=== PATIENT | female | born 1955 | race Caucasian/White ===

== ENCOUNTER 2019-10-19 15:24 | Emergency (ER) | payer BC, SELFPAY ==
--- NOTE | ~2019-10-19 | XR_ITS ---
XR hand LT 2V 10/19/2019 17:53 Indication: Shortness reduction left hand fractures Procedure: 2 views left hand Comparison: 10/19/2019 Findings: There are fractures involving the bases of the third, fourth and fifth proximal phalanges w ith improved alignment of the fifth digit fracture. There is stable alignment of the third and fourth proximal phalangeal fractures. No other significant change. Impression: 1: Extra-articular fractures bases of the third, fourth and fifth proximal phalanges with improved al ignment of the fracture involving the fifth proximal phalanx. Reviewed, dictated and finalized at location A. Impression: 1: Extra-articular fractures bases of the third, fourth and fifth proximal phal anges with improved alignment of the fracture involving the fifth proximal phal anx.
--- NOTE | ~2019-10-19 | XR_ITS ---
XR hand LT min 3V 10/19/2019 16:02 Indication: Left hand pain after fall Procedure: 3 views left hand Comparison: 12/08/2018 Findings: There are fractures involving the proximal aspect of the third, fourth and fifth proximal p halanges. No definite intra-articular extension. There is dorsal displacement of the fourth and fifth digit fractures with mild dorsal angulation. There is severe degenerative change of the first [facility] fabiana int. No other acute fracture or traumatic malalignment. Impression: 1: Extra articular fractures left third, fourth and fifth proximal phalanges with dorsal displacement and angulation of the fourth and fifth digit fractures. Reviewed, dictated and finalized at location A. Impression: 1: Extra articular fractures left third, fourth and fifth proximal phalanges wi dorsal displacement and angulation of the fourth and fifth digit fractures.
[2019-10-19 15:26] VITALS: BP 153/113; PULSE 110; RESP 20; TEMP 36.6; O2SAT 97
[2019-10-19] MEDS: SODIUM CHLORIDE 0.9% IV 1,000 ML 999 ML IV CONT (15:48)
[2019-10-19] MEDS: ONDANSETRON INJ 4 MG/2 ML VIAL IV PUSH (15:49)
[2019-10-19] MEDS: MORPHINE SULFATE 4 MG/ML INJ IV PUSH ×2 (15:49→17:03)
[2019-10-19 16:00] VITALS: BP 113/69; PULSE 75; RESP 16; O2SAT 96
--- NOTE | 2019-10-19 16:23 | PC.NURSE ---
Patient given sponge to wet mouth per verbal okay from Hang BLAKELY
[2019-10-19 17:03] VITALS: BP 137/78; PULSE 97; RESP 20; O2SAT 95
[2019-10-19] MEDS: SODIUM CHLORIDE 0.9% IV 500 ML 999 ML (17:03)
[2019-10-19 17:08] VITALS: BP 120/90; PULSE 79; RESP 18; O2SAT 95
[2019-10-19 17:53] VITALS: BP 118/74; PULSE 69; RESP 18; O2SAT 96
--- NOTE | 2019-10-19 18:11 | ED.GENADULT ---
HPI - General Adult General Chief complaint: Extremity Injury, Upper Stated complaint: left hand injury Time Seen by Provider: 10/19/19 15:27 Source: patient Mode of arrival: ambulatory Limitations: no limitations History of Present Illness HPI narrative: Patient is a 64-year-old female who presents with injury of the left hand patient was ambulating when she misstepped and landed on the left hand sustaining injuries to the third through fifth digits as well as the hand patient notes moderate aching pain to the hand and digits as listed patient has not had anything for pain presents per private vehicle and on arrival is in the room resting comfortably and mild pain distress patient denies other injuries or complaints Related Data Home Medications Medication Instructions Recorded Confirmed sulfasalazine 500 mg tablet 0.5 gm PO BID tablet 09/27/19 09/27/19 Allergies Allergy/AdvReac Type Severity Reaction Status Date / Time azithromycin Allergy Intermediate Diarrhea Verified 12/08/16 16:19 codeine Allergy Unknown Verified 05/04/11 16:34 hydrocodone Allergy Unknown Verified 06/08/12 08:19 Penicillins Allergy Unknown Verified 09/19/16 16:13 tramadol Allergy Unknown Verified 06/08/12 08:18 valacyclovir Allergy Unknown Verified 01/25/17 13:56 Review of Systems Review of Systems: All systems reviewed & are unremarkable except as noted in HPI and below PMFSH Past Medical History Medical History Allergic rhinitis Ankylosing spondylitis Anxiety Chronic low back pain COPD (chronic obstructive pulmonary disease) DDD (degenerative disc disease) Depression GERD (gastroesophageal reflux disease) H/O deep venous thrombosis HLD (hyperlipidemia) Paresthesias Personal history of pulmonary embolism Polyarthralgia PTSD (post-traumatic stress disorder) Family History Family History (Updated 01/16/14 @ 07:13 by DOCTOR UNKNOWN) Father Family history of coronary artery disease Social History Social History Smoking status: Light tobacco smoker Alcohol intake: never Exam Narrative: Exam Narrative: GENERAL: Well-appearing, well-nourished, and in no acute distress. HEAD: Normocephalic, atraumatic. EYES: PERRLA and EOMI. ENT: Nares clear, no rhinorrhea or epistaxis. Mucous membranes moist. CHEST: Clear to auscultation. No respiratory distress. No wheezes rales or rhonchi HEART: Regular rate and rhythm. No murmur heard. Normal peripheral pulses. EXTREMITIES: Patient with bruising swelling and tenderness involving the proximal phalanxes and distal to mid hand of the left hand the digits involved of the third through fifth SKIN: Warm, dry, no rash. NEURO: No focal deficits. Alert and oriented x3. Neurovascularly intact. Capillary refill less than 2 seconds PSYCH: Normal mood and affect. Course Course Emergency Course: Patient in the room aware of case findings treatment plan and diagnosis agreeing to follow-up as directed or to return if symptoms worsen or concerns Consultations Consultation #1: Discussed case with hand surgeon who will follow patient in clinic Date: 10/19/19 Time: 18:28 Vital Signs Vital signs: Vital Signs Temperature 97.8 F 10/19/19 15:26 Pulse Rate 110 H 10/19/19 15:26 Respiratory Rate 20 10/19/19 15:26 Blood Pressure 153/113 H 10/19/19 15:26 Pulse Oximetry 97 10/19/19 15:26 Temperature 97.8 F 10/19/19 15:26 Pulse Rate 69 10/19/19 17:53 Respiratory Rate 18 10/19/19 17:53 Blood Pressure 118/74 10/19/19 17:53 Pulse Oximetry 96 10/19/19 17:53 Procedures Other Procedure Procedure 1: Other Procedure: Patient was placed in a ulnar gutter splint by myself and the driver license technician and nurse that was fabricated in the emergency department. Patient is neurovascularly intact pre-and post procedure Medical Decision Making [facility] Narrative Medical decis
[2019-10-19 19:00] VITALS: BP 117/66; PULSE 67; RESP 18; O2SAT 97
== END 2019-10-19 19:02 | disposition home or self-care (01) ==
PROVIDERS: Emergency Provider Emergency Medicine; PCP Family Medicine
DX: S62.613A Displaced fracture of proximal phalanx of left middle finger, initial encounter for closed fracture (principal); S62.615A Displaced fracture of proximal phalanx of left ring finger, initial encounter for closed fracture; S62.617A Displaced fracture of proximal phalanx of left little finger, initial encounter for closed fracture; J44.9 Chronic obstructive pulmonary disease, unspecified; K21.9 Gastro-esophageal reflux disease without esophagitis; F41.9 Anxiety disorder, unspecified; F32.9 Major depressive disorder, single episode, unspecified; E78.5 Hyperlipidemia, unspecified; F43.10 Post-traumatic stress disorder, unspecified; Z86.711 Personal history of pulmonary embolism; Z86.718 Personal history of other venous thrombosis and embolism; F17.200 Nicotine dependence, unspecified, uncomplicated; W01.0XXA Fall on same level from slipping, tripping and stumbling without subsequent striking against object, initial encounter
CPT/HCPCS: 26725; 26770; 29125; 73120; 73130; 99284; J2270; J2405; J7030; J7040

== ENCOUNTER 2020-07-30 13:01 | Outpatient (CLI) | payer BC, SELFPAY | END 2020-07-30 13:02 | disposition home or self-care (01) | LOC: ANHCOVIDVC 13:01 | PROVIDERS: PCP Physician Assistant | DX: Z23 Encounter for immunization (principal) | CPT/HCPCS: 0001A; 91300 ==

== ENCOUNTER 2020-08-20 13:00 | Outpatient (CLI) | payer BC, SELFPAY | END 2020-08-20 13:01 | disposition home or self-care (01) | LOC: ANHCOVIDVC 13:00 | PROVIDERS: PCP Physician Assistant | DX: Z23 Encounter for immunization (principal) | CPT/HCPCS: 0002A; 91300 ==

== ENCOUNTER 2021-01-27 13:05 | Outpatient (CLI) | payer BC, SELFPAY ==
--- NOTE | 2021-01-27 13:22 | ECHO_ITS ---
Patient Info Name: Anat Mercado Age: 65 years : 1955 Gender: Female Ht: 66 in Wt: 140 lbs BSA: 1.72 m2 HR: 68 bpm BP: 111 / 73 mmHg Technical Quality: Good Exam Date: 01/27/2021 1:40 PM Exam Location: [facility] Patient Status: Outpatient Admit Date: 01/27/2021 Staff Ordering Physician: Mani Peña PA-C Sod Cutter: Martha Daniels RDCS Attending Provider: Mani Peña PA-C Referring Physician: Mariana AMARAL; Exam Type: CA echo doppler color flow Study Info Indications - copd pre op R06.02 - Shortness of breath Complete two-dimensional, color flow and Doppler transthoracic echocardiogram is performed. Summary 1. Complete two-dimensional, color flow and Doppler transthoracic echocardiogram is performed. 2. Left ventricular chamber dimension is normal. 3. Left ventricular systolic function is normal, estimated at 60-65%. 4. The left ventricular diastolic function is grade I diastolic dysfunction. 5. E/e' 8 is minimally elevated. 6. Global longitudinal strain is normal at -21.4%. 7. Left atrial chamber dimension is mildly enlarged. 8. There is mild mitral valve regurgitation. 9. There is trace tricuspid valve regurgitation. 10. No pulmonary hypertension, estimated pulmonary arterial systolic pressure is 28 mmHg. Left Ventricle E/e' 8 is minimally elevated. Global longitudinal strain is normal at -21.4%. Left ventricular chamber dimension is normal. Left ventricular systolic function is normal, estimated at 60-65%. The left ventricular diastolic function is grade I diastolic dysfunction. Right Ventricle Right ventricular chamber dimension is normal. Right ventricular systolic function is normal. Left Atria Left atrial chamber dimension is mildly enlarged. Right Atria Right atrial chamber dimension is normal. Aortic Valve The aortic valve is trileaflet. There is no aortic valve stenosis. There is no aortic valve regurgitation. Pulmonic Valve There is no pulmonic regurgitation. Mitral Valve There is no mitral valve stenosis. There is mild mitral valve regurgitation. Tricuspid Valve There is trace tricuspid valve regurgitation. No pulmonary hypertension, estimated pulmonary arterial systolic pressure is 28 mmHg. Pericardium/Pleural There is no pericardial effusion. Inferior Vena Cava Normal inferior vena cava with >50% collapse upon inspiration consistent with normal right atrial pressure, 5 mmHg. Aorta The aortic root size at the sinus of Valsalva is normal. Left Ventricular Outflow Tract Name Value Normal LVOT 2D LVOT Diameter 2.0 cm LVOT Doppler LVOT Peak Gradient 5 mmHg LVOT Mean Gradient 3 mmHg LVOT VTI 26 cm LVOT VTI/AV VTI Ratio 0.9 LVOT Stroke Volume 78 ml LVOT CO 13.8 l/min LVOT CI 8.0 l/min/m2 Pulmonic Valve Name
--- NOTE | 2021-01-30 23:03 | WPDPFTINT ---
PFT Procedure Performed PFT Procedure Performed Spirometry with Pre/Post Bronchodilator Plethysmography (Lung Vol) Diffusing Cap (DLCO) Flow Vol Loop PFT Interpretation DOS: 01/27/2021 REQUESTING: Mani Peña PA-C REASON FOR TESTING: Shortness of breath, possible surgery PULMONARY FUNCTION TESTS results are reliable and reproducible. Spirometry: FEV1 is 103% predicted, 2.65 L. FVC iw 126%, supranormal. FEV1/FVC is 64% which is decreased. There is no increased after bronchodilator administration. Lung volumes: Total lung capacity is 130%, mild hyperinflation. Residual volume is 130%, mild air trapping. This is consistent with an obstructive process. Airway resistance is 211%, increased. Diffusion: DLCO is mildly decreased, 65% predicted. Flow volume loop: Mild concave pattern of the expiratory limb consistent with airflow obstruction. IMPRESSION: Mild obstructive ventilatory impairment with mild air trapping and hyperinflation and diffusion impairment. Lack of response to bronchodilator should not preclude use if clinically indicated. Sushma Ha MD
== END 2021-01-27 13:06 | disposition home or self-care (01) ==
LOC: ANHCARD 13:07
PROVIDERS: PCP Physician Assistant; Visit Provider Physician Assistant
DX: J44.9 Chronic obstructive pulmonary disease, unspecified (principal); I34.0 Nonrheumatic mitral (valve) insufficiency
CPT/HCPCS: 93306; 94060; 94726; 94729

== ENCOUNTER 2024-06-22 15:05 | Emergency (ER) | payer BC, SELFPAY ==
--- NOTE | ~2024-06-22 | XR_ITS ---
EXAM: XR ankle LT min 3V, XR foot LT min 3V DATE: 06/22/2024 16:09 HISTORY: fall x 1 week . COMPARISON: None available. FINDINGS: Normal mineralization. Oblique fracture of the distal left fibula, extending to the joint line (Shaw B), with 2 mm lateral displacement. No lytic or blastic lesion. Mild degenerative change at the first MTP joint and multiple midfoot joints. Achilles and plantar enthesopathy. No erosion or periosteal change. Soft tissues within normal limits. IMPRESSION: Minimally displaced oblique distal left fibular fracture. Reviewed, dictated and finalized at location K. ENCE TECHNICIAN IMPRESSION: Minimally displaced oblique distal left fibular fracture.
--- OUTSIDE RECORDS SUMMARY | 2024-06-22 15:07 | XMS_ITS | Clinical Summary ---
Author Organization [facility] Address [address] [facility] [address] [place] [address] Phone Care Team Providers Care Corporate Compliance Manager Name Role Phone Enrique Hussein MD Primary Care Provider Allergies Active Allergy Reactions Criticality Noted Date Comments Menthol Nausea 02/04/2019 All pain medicine Medications albuterol 108 (90 Base) MCG/ACT Aerosol Solution INHALE 2 PUFFS EVERY 4 HOURS NEEDED FOR SHORTNESS OF BREATH. 1 10/21/19 19 Active azithromycin (ZITHROMAX) 500 MG Tablet 1 TABLET(S) ORAL DAILY ON MONDAY, MONDAY AND MONDAY, 1 01/16/20 19 Active ferrous sulfate 325 (65 Fe) MG Tablet TAKE 1 TABLET BY MOUTH THREE TIMES A DAY TAKE WITH MEALS 0 01/08/20 19 Active TRELEGY ELLIPTA 100-62.5-25 MCG/INH AEROSOL POWDER, BREATH ACTIVATED INHALE 1 PUFF BY MOUTH DAILY 1 01/16/20 19 Active ipratropium-albuter ol (DUO-NEB) 0.5-2.5 (3) MG/3ML Solution INHALE 3 ML VIA NEBULIZATION ROUTE FOUR TIMES DAILY 0 01/02/20 19 Active Levocetirizine Dihydrochloride 5 MG Tablet TAKE 1 TABLET (5MG) BY MOUTH EVERY DAY IN THE EVENING 1 01/24/20 19 Active montelukast (SINGULAIR) 10 MG Tablet TAKE 1 TABLET BY MOUTH EVERY DAY IN THE EVENING 5 01/25/20 19 Active omeprazole (PRILOSEC) 40 MG CAPSULE DELAYED RELEASE TAKE 1 CAPSULE BY MOUTH TWICE A DAY BEFORE A MEAL 3 01/14/20 19 Active prochlorperazine (COMPAZINE) 10 MG Tablet TAKE 1 TABLET BY MOUTH THREE TIMES A DAY 5 11/28/19 19 Active DALIRESP 250 MCG Tablet TAKE 1 TABLET BY MOUTH DAILY FOR 30 DAYS 0 01/27/20 19 Active DALIRESP 500 MCG Tablet Take 500 mcg by mouth daily. 2 01/17/20 19 Active Active Problems Problem Noted Date Diagnosed Date Iron deficiency anemia 02/04/2019 Family History Medical History Relation Name Comments Heart Attack Father Stroke Maternal Grandmother Cancer Mother Relation Name Status Comments Father Maternal Grandmother Mother Social History Tobacco Use Types Packs/Day Years Used Date Smoking Tobacco: Former Smokeless Tobacco: Former Tobacco Cessation:Counseling Given: No Alcohol Use Standard Drinks/Week Comments Not Currently 0 (1 standard drink = 0.6 oz pur e alcohol) PHQ-2 Answer Date Recorded PHQ-2 Score 0 02/04/2019 Comments Unknown Sex and Gender Information Value Date Recorded Sex Assigned at Not on file Legal Sex Female 3:02 PM CDT Gender Identity Not on file Sexual Orientation Not on file Last Filed Vital Signs Vital Sign Reading Time Taken Comments Blood Pressure 136/80 03/07/2019 3:15 PM CDT Pulse 85 03/07/2019 3:15 PM CDT Temperature 36.4 ??C (97.5 ??F) 03/07/2019 3:15 PM CD T Respiratory Rate - - Oxygen Saturation 96% 03/07/2019 3:15 PM CDT Inhaled Oxygen Concentration - - Weight 73.9 kg (163 lb) 03/07/2019 3:15 PM CDT Height 167.6 cm (5' 6 ) 02/04/2019 1:02 PM CDT Body Mass Index 26.31 02/04/2019 1:02 PM CDT Plan of Treatment Health Maintenance Due Date Last Done Comments DEXA Bone Density 1955 Hepatitis C Virus (HCV) Screening 1955 Colonoscopy 2001 Colorectal Cancer Screening 2001 Cologuard 2006 Immunochemical Fecal Occult Blood 2006 Mammogram 2006 Zoster Immunization (1 of 2) 2006 Pneumococcal Immunization (5 0+ years) (2 of 2 - PCV) 06/08/2013 06/08/2012 Influenza Immunization (#1) 01/21/202401/21, 02/17/2017 SARS-COV-2 Immunization ( - 2023-25 season) 2024 Respiratory Syncytial Virus (RSV) Immunization (Adult) (1 - 1-dose 75+ series) 10/11/2031 DTaP/Tdap/Td Immunization Discontinued 06/08/2012 Pneumococcal Immunization Combined Discontinued 06/08/2012 TdaP Immunization Completed 06/08/2012 Hepatitis B Immunization Aged Out No longer eligible based on patient's age to complete this topic Meningococcal Immunization (ACWY) Aged Out No longer eligible based on patient's age to complete this topic Rotavirus Immunization Aged Out No lo nger eligible based on patient's age to complete this topic Insurance Care Teams Corporate Compliance Manager Relationship Specialty Start Date End Date Enrique Hussein MD [address] [place] [address] PCP - General Family Medicine 02/04/19
--- OUTSIDE RECORDS SUMMARY | 2024-06-22 15:07 | XMS_ITS | Referral Summary ---
Author Organization [facility] Address [address] [place] [address] Care Team Providers Care Electricity Trader Name Role Phone Unknown, Provider Primary Care Provider Unavaila ble Source Comments [facility],non-owned Affiliates and Associated Physician Practices is amultiple site organization consisting of ambulatory clinics and hospital sitesin [place] and [place]. This disclosure is being madepursuant to the Care Everywhere program and may not contain all information available regarding this patient. Last updated 18.[facility] Allergies Active Allergy Reactions Criticality Noted Date Comments Menthol Unknown 02/04/2019 All pain medicine Penicillin G Sodium Unknown 11/26/2019 Medications * Be aware that medications may not be up to date on this document. Alwaysverify current medications with the patient. Medication Sig Dispensed Refills Start Date End Date Status albuterol HFA (PROVENTIL;VENTOLI N;PROAIR) 108 (90 Base) MCG/ACT inhaler INHALE 2 PUFFS EVERY 4 HOURS NEEDED FOR SHORTNESS OF BREATH. 10/20/2018 Active ciprofloxacin (CIPRO) 500 MG tablet TAKE 1 TABLET BY MOUTH EVERY 12 HOURS FOR 7 DAYS 06/03/2019 Active escitalopram (LEXAPRO) 10 MG tablet Take 10 mg by mouth once daily 12/20/2019 Active doxycycline hyclate (VIBRAMYCIN) 100 MG tablet TAKE 1 TABLET BY MOUTH TWICE A DAY FOR 10 DAYS 07/25/2019 Active cyclobenzaprine (FLEXERIL) 5 MG tablet 02/18/2020 Active clonazePAM (KLONOPIN) 0.5 MG tablet Take 0.25-0.5 mg by mouth for sleep 10/29/2019 Active ferrous sulfate 325 (65 FE) MG tablet TAKE 1 TABLET BY MOUTH THREE TIMES A DAY TAKE WITH MEALS 01/07/2019 Active TRELEGY ELLIPTA 100-62.5-25 MCG/INH Inhale 1 puff by mouth once daily 01/20/2020 Active albuterol-ipratrop ium (DUO-NEB) 0.5-2.5 (3) MG/3ML nebulizer solution INHALE 3 ML VIA NEBULIZATION ROUTE FOUR TIMES DAILY 01/01/2019 Active levocetirizine (XYZAL) 5 MG tablet 01/09/2020 Active VIVLODEX 10 MG CAPS 01/31/2020 Active montelukast (SINGULAIR) 10 MG tablet 01/09/2020 Active omeprazole (PRILOSEC) 40 MG capsule TAKE 1 CAPSULE BY MOUTH TWICE A DAY 02/07/2020 Active prochlorperazine (COMPAZINE) 10 MG tablet Take 10 mg by mouth every 8 hours as needed 02/07/2020 Active sulfaSALAzine EC (AZULFIDINE ENTAB) 500 MG tablet Take 1,000 mg by mouth 2 times daily 01/28/2020 Active Roflumilast (DALIRESP) 250 MCG tablet TAKE 1 TABLET BY MOUTH DAILY FOR 30 DAYS 01/26/2019 Active meloxicam (MOBIC) 7.5 MG tablet Take 1 tablet by mouth once daily 30 tablet 2 02/20/2020 Active azithromycin (ZITHROMAX) 500 MG tablet TAKE 1 TAB BY MOUTH EVERY MONDAY, MONDAY, AND Monday07/30/2020 Active Active Problems Problem Noted Date Diagnosed Date Back pain 02/21/2020 Social History Tobacco Use Types Packs/Day Years Used Date Smoking Tobacco: Former Cigarettes Q uit: 02/19/2018 Smokeless Tobacco: Never Sex and Gender Information Value Date Recorded Sex Assigned at Not on file Gender Identity Not on file Sexual Orientation Not on file Last Filed Vital Signs Vital Sign Reading Time Taken Comments Blood Pressure - - Pulse - - Temperature - - Respiratory Rate - - Oxygen Saturation - - Inhaled Oxygen Concentration - - Weight 68.6 kg (151 lb 3.2 oz) 09/24/2020 11:56 AM CDT Height 165.1 cm (5' 5 ) 09/24/2020 11:56 AM CDT Body Mass Index 25.16 09/24/2020 11:56 AM CDT Plan of Treatment Not on file Care Teams Electricity Trader Relationship Specialty Start Date End Date Unknown, Provider PCP - General 02/19/20
--- OUTSIDE RECORDS SUMMARY | 2024-06-22 15:07 | XMS_ITS | Clinical Summary ---
Author Organization [facility] Address [address] [place] [id number] Care Team Providers Care Postmaster Name Role Phone Mani Peña Primary Care Provider Allergies Active Allergy Reactions Criticality Noted Date Comments Roflumilast Swelling High 10/27/2022 Menthol Nausea only,Unknown Low 02/04/2019 All pain medicine All pain medicine Opioids - Morphine Analogues Nausea & Vomiting Medium 10/27/2022 Penicillin G Sodium Unknown 11/26/2019 Medications omeprazole (PriLOSEC) 40 mg capsule Take 1 capsule (40 mg total) by mouth 2 (two) times a day 11/25/19 22 Active prochlorperazine (COMPAZINE) 10 mg tablet Take 1 tablet (10 mg total) by mouth every 12 (twelve) hours as needed 11/25/19 22 Active levocetirizine (XYZAL) 5 mg tablet Take 1 tablet (5 mg total) by mouth daily 11/25/19 22 Active Trelegy Ellipta 100-62.5-25 mcg inhaler Inhale 1 puff daily 11/25/19 22 Active ferrous sulfate 325 mg (65 mg of elemental iron) tablet TAKE 1 TABLET BY MOUTH THREE TIMES A DAY TAKE WITH MEALS 01/08/20 19 Active escitalopram (LEXAPRO) 20 mg tablet Take 0.5 tablets (10 mg total) by mouth 2 (two) times a day 12/01/19 22 Active cyclobenzaprine (FLEXERIL) 5 mg tablet Take 1 tablet (5 mg total) by mouth 02/18/20 20 Active ipratropium-albut Stef (DUO-NEB) 0.5-2.5 mg/3 mL nebulizer solution INHALE 3 ML VIA NEBULIZATION ROUTE FOUR TIMES DAILY 01/02/20 19 Active cyanocobalamin (Vitamin B-12) 2,000 mcg tablet Act dillon folic acid (FOLVITE) 1 mg tablet Take 1 tablet (1 mg total) by mouth daily Active albuterol HFA (PROVENTIL HFA,VENTOLIN HFA,PROAIR HFA) 90 mcg/actuation inhaler INHALE 2 PUFFS BY MOUTH EVERY 4 HOURS NEEDED FOR SHORTNESS OF BREATH 10/21/19 19 Active ondansetron (ZOFRAN) 4 mg tablet TAKE 1 TABLET BY MOUTH EVERY 8 HOURS NEEDED FOR NAUSEA AND VOMITING 9 tablet 2 09/07/19 23 Active rosuvastatin (CRESTOR) 5 mg tablet Take 1 tablet (5 mg total) by mouth daily 09/07/19 23 Active fluticasone propionate (FLONASE) 50 mcg/actuation nasal spray 09/29/19 23 Active ibandronate (BONIVA) 150 mg tablet 150 MG ORALLY MONTHLY 08/29/19 23 Active montelukast (SINGULAIR) 10 mg tablet Take 1 tablet (10 mg total) by mouth daily 09/22/19 23 Active pregabalin (LYRICA) 75 mg capsuleIndication s:Neuropathic Pain Take 1 capsule (75 mg total) by mouth daily 60 capsule 02/04/20 23 Active lidocaine (LIDODERM) 5 %Indications:Lumb ar radiculopathy PLACE 1 PATCH ON THE SKIN DAILY REMOVE & DISCARD PATCH WITHIN 12 HOURS OR DIRECTED BY 30 patch 11 10/30/19 24 025 Active Active Problems Problem Noted Date Diagnosed Date Displaced fracture of proxim al phalanx of left little finger, initial encounter for closed fracture 12/10/2021 Fall on same level 12/10/2021 Back pain 02/21/2020 Iron deficiency anemia 02/04/2019 Immunizations Name Administration Dates Next Due Influenza, Quadrivalent, Spl it, Preservative Free, Intramuscular 02/15/2021,02/09/2018,02/17/2017 Influenza, Split 04/30/2013,06/08/2012 Pneumococcal Polysaccharide PPV23 06/08/2012 Tdap 06/08/2012 Surgical History Surgery Date Site/Laterality Comments REPLACEMENT DISC ANTERIOR LUMBAR SPINE 05/22/2004 - 05/21/2005 L5 HYSTERECTOMY CHOLECYSTECTOMY SECTION 3 of them.1982,1984,1986 CYST REMOVAL 05/22/1992 - 05/21/1993 wrist Medical History Medical History Date Comments COPD (chronic obstructive pulmonary disease) (HC C) Rheumatoid arthritis (HCC) Asthma Bleeding disorder (CMS/HCC) (HCC) Depression Hypertension Osteopenia Osteoporosis Social History Tobacco Use Types Packs/Day Years Used Date Smoking Tobacco: Former Cigarettes Q uit: 2019 Tobacco Cessation:Counseling Given: Not Answered AUDIT-C Answer Date Recorded Q1: How often do you have a drink containing alcohol? Never 11/17/2022 Q2: How many drinks containi ng alcohol do you have on a typical day when you are drinking? Patient does not drink Q3: How often do you have si x or more drinks on one occasion? 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 Gender Identity Not on file Sexual Orientation Not on file Obstetrics History Last Filed Vital Signs Vital Sign Reading Time Taken Comments Blood Pressure 140/86 11/17/2022 11:28 AM CDT Pulse 85 11/17/2022 11:28 AM CDT Temperature 36.5 ??C (97.7 ??F) 11/17/2022 10:38 AM C DT Respiratory Rate 16 11/17/2022 11:28 AM CDT Oxygen Saturation 93% 11/17/2022 11:28 AM CDT Inhaled Oxygen Concentration - - Weight 76.2 kg (168 lb) 11/17/2022 3:09 PM CDT Height 167.6 cm (5' 6 ) 11/17/2022 3:09 PM CDT Body Mass Index 27.12 11/17/2022 3:09 PM CDT Plan of Treatment Health Maintenance Due Date Last Done Comments Breast Cancer Screening-Mammogram 1955 Colon Cancer Screening-Colonoscopy 1955 Depression Screening 1955 Hepatitis C Screening 1955 Hepatitis B Screening 1974 Zoster Vaccine (1 of 2) 2006 Pneumococcal vaccine 65+ (2 of 2 - PCV) 2021 06/08/2012 Well Visit 65+ 2021 DTaP/Tdap/Td Vaccine (2 - Td or Tdap) 06/08/2022 06/08/2012 Fall Risk Assessment 11/18/2023 11/17/2022, 10/28/19 Osteoporosis Screening-Bone Density Scan 12/23/2023 12/22/2021 Covid-19 Vaccine (5 - 2023-2 5 season) 2024 06/21/2021, 01/05/2021, 08/20/2020, Additional history exists Influenza Vaccine (#1) 2024 , 02/09/2018, 02/17/2017, Additional history exists Goals Goal Patient Goal Type Associated Problems Recent Progress Patient-Stated? Author CCM Chronic Pain Care Plan Chronic Care Management No Rosy Kasper RN Note: Problem: Chronic Pain Goals: 1. Minimize further functional decline 2. Maximize quality of life 3. Control pain Strategies: - Activity/exercise program recommendation - Conservative stepwise pain medicine strategy with multi-disciplinary approach - Recommend healthy lifestyle strategies and compensatory methods as needed Reduce the likelihood of falling Lifestyle Rosy Prather RN Note: Below are four things you can do to prevent falls: Begin an exercise program to improve your leg strength & balance Ask your doctor or pharmacist to review your medicines Get annual eye check-ups & update your eyeglasses Make your home safer by: Removing clutter & tripping hazards Putting railings on all stairs & adding grab bars in the bathroom Having good lighting, especially on stairs Contact your local community or senior center for information on exercise, fall prevention programs, or options for improving home safety. Medical Devices Implanted Type Area Vp Product Management Device Identifier Shelf Expiration Date Model / Serial / Lot Lumbar Fusion Spine Lumbar Procedures Procedure Name Priority Date/Time Associated Diagnosis Comments DEXA AXIAL SKELETON BONE DENSITY 1 OR MORE SITES Schedule Routine, Read Routine (OP Routine) 12/22/2021 11:52 AM CDT Spondylosis with myelopathy Balance disorder Low back pain, non-specific from Last 3 Months or Most Recently Relevant to Health Maintenance Results * DEXA Axial Skeleton Bone Density Multi Site (12/22/2021 11:52 AM CDT) Anatomical Region Laterality Modality Body N/A Radiographic Marlen ging Narrative 12/22/2021 12:28 PM CDT Patient Name: Anat Mercado Date of : 1955 Date of scan: 12/22/2021 Bone mineral density was performed on a [employer] Discovery Densitometer. ?? Based on machine cross-calibration and precision studies the least significant changes of this densitometer is 0.024 g/cm2 at the spine, 0.020 g/cm2 at the total proximal femur, and 0.014g/cm2 at the forearm. HISTORY: This is a 66 y.o. postmenopausal female with a history of low bone mass. She reports that she quit smoking about 3 years ago. She smoked 2.00 packs per day. She does not have any smokeless tobacco history on file. previously treated with anticoagulants and current complaint of back pain, neck pain, and leg pain. INDICATIONS: Menopause status and history of low bone mass. FINDINGS: BONE MINERAL DENSITY OF THE PROXIMAL FEMUR Bone Mineral Density (BMD) of the left hip total was found to be 0.787 gm/cm2. This corresponds to a T-score standard deviations from the mean of young adults of -1.3. Femoral neck is 0.668 gm/cm2 with a T-score (standard deviations from the mean of young adults) of -1.6. There is no previous study available for comparison. BONE MINERAL DENSITY OF THE FOREARM Bone Mineral density (BMD) of the left proximal 1/3 of the radius measures 0.561 gm/cm2. This corresponds to a T-score (standard deviations from the mean of young adults) of -2.2. There is no previous study available for comparison. A forearm bone density study was performed instead of the lumbar spine due to future lumbar surgery and degenerative changes. SUMMARY: Bone mineral density shows evidence of low bone mass at the proximal femur and forearm and moderately increased fracture risk (Osteopenia). ADDITIONAL COMMENTS: Postmenopausal Women and Men Over 50: Diagnostic criteria: Osteoporosis: BMD at or below -2.5 T-score; Osteopenia (low bone mass): BMD between -1.0 and -2.5 T-score. If the patient has a history of a fragility fracture, a fracture that occurred with trauma equivalent to a fall from a standing position or less, then the diagnosis is osteoporosis regardless of bone density. The history and data sections of the bone mineral density scan were prepared by Yesenia Pascal)(Paul)(BD), CBDT who is accredited by the International Society of Clinical Densitometry. The overall patient assessment and scan interpretation were performed by Royal Rivas MD who is certified by the International Society of Clinical Densitometry. [id number] us Greg BLAKELY IMG DXA PROCEDURES Final Result from Last 3 Months or Most Recently Relevant to Health Maintenance Insurance [employer] OOS [employer] OOS Care Teams Postmaster Relationship Specialty Start Date End Date Mani Peña PA [address] [facility] [address] [place] [address] PCP - General Physician Kettle Cleaner 07/20/21
--- OUTSIDE RECORDS SUMMARY | 2024-06-22 15:07 | XMS_ITS | Referral Summary ---
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 Medical Devices Implanted Type Area Sew Out Operator Device Identifier Shelf Expiration Date Model / [...] Bone mineral density was performed on a [employer] Discovery Densitometer. ?? Based on machine cross-calibration [...] mineral density scan were prepared by Yesenia Pascal)(Paul)(CHELSI), CBDT who is accredited by the International Society of Clinical Densitometry. The overall patient assessment and scan interpretation were performed by Royal Rivas MD who is certified by the International Society of Clinical Densitometry. [id number] Greg BLAKELY IM DXA PROCEDURES Final Result from Last 3 Months or Most Recently Relevant to Health Maintenance Insurance [employer] OOS [employer] OOS Care Teams Human Resources Operations Director Relationship Specialty Start Date End Date Mani Peña PA [address] [facility] [address] [place] [address] PCP - General Physician Lead Sustainability Specialist 07/20/21
--- OUTSIDE RECORDS SUMMARY | 2024-06-22 15:07 | XMS_ITS | Clinical Summary ---
Author Organization [facility] Address [address] [place] [address]. [place], [place] [id number] [place] [id number] Care Team Providers Care Statistical Geneticist Name Role Phone Unavailable Primary Care Provider Unavailabl e Social History Tobacco Use Types Packs/Day Years Used Date Smoking Tobacco: Never Assessed Comments Unknown Sex and Gender Information Value Date Recorded Sex Assigned at Not on file Legal Sex Female 7:02 PM CDT Gender Identity Not on file Sexual Orientation Not on file Plan of Treatment Health Maintenance Due Date Last Done Comments Colorectal Cancer Screening Colonoscopy (10 Years) 1955 Hepatitis C 1974 DTaP, Tdap and Td Vaccines ( 1 - Tdap) 10/11/1975 Mammogram Screening 1996 Zoster Vaccines (1 of 2) 2006 Dexa Scan (General) 2021 Pneumococcal Vaccine: 65+ Ye ars (1 of 1 - PCV) 2021 COVID-19 Vaccine ( - 2023-2 5 season) 2024 Influenza Adult (#1) 2024 RSV Immunization or 60+ Years (1 - 1-dose 75+ series) 10/11/2031 Meningococcal B Vaccine Aged Out No l onger eligible based on patient's age to complete this topic Meningococcal Vaccine Aged Out No marguerite jesse eligible based on patient's age to complete this topic RSV Immunizations Under 20 Months Aged Out No longer eligible based on patient's age to complete this topic
--- OUTSIDE RECORDS SUMMARY | 2024-06-22 15:07 | XMS_ITS | Clinical Summary ---
Author Organization [facility] Address [address] [place] [address] Care Team Providers Care Car Unloader Helper Name Role Phone Unknown, Provider Primary Care Provider Unavaila ble Source Comments [facility],non-owned Affiliates and Associated Physician Practices is amultiple site organization consisting of ambulatory clinics and hospital sitesin [place], [place], [place] and [place]. This disclosure is being madepursuant to the Care Everywhere program and may not contain all information available regarding this patient. Last updated 18.[facility] [place] Allergies Active Allergy Reactions Criticality Noted Date [...] 09/24/2020 11:56 AM CDT Plan of Treatment Health Maintenance Due Date Last Done Comments BONE DENSITY TESTING 1955 COLOGUARD (AGES 45-75) - COL ON CA SCREENING 1955 COLON MONITORING 1955 COLONOSCOPY - COLON CA SCREENING 1956 CT COLONOGRAPHY - COLON CA SCREENING 1955 Colorectal Cancer Screening 1955 FIT - COLON CA SCREENING 1956 FLEX SIG - COLON CA SCREENING 1956 LIPID TESTING 1955 MAMMOGRAM 1955 HEPATITIS C SCREENING 10/06/1974 DTAP/TDAP/TD VACCINES (1 - Tdap) 10/11/1975 PNEUMOCOCCAL VACCINE 50+ (1 of 1 - PCV) 2006 ZOSTER VACCINE (1 of 2) 2006 SCREENING FOR DIABETES 09/24/2020 COVID-19 VACCINE (1 - 2023-2 5 season) 2024 INFLUENZA VACCINE (#1) 2024 DEPRESSION SCREENING 05/22/2024 Respiratory Syncytial Virus (RSV) Vaccine Pt: or over 60 yrs (1 - 1-dose 75+ series) 10/11/2031 HEPATITIS B VACCINE Aged Out No longe r eligible based on patient's age to complete this topic HIB VACCINE Aged Out No longer eligi ble based on patient's age to complete this topic HPV VACCINE Aged Out No longer eligi ble based on patient's age to complete this topic MENINGOCOCCAL (Group B) VACCINE Aged Out No longer eligible based on patient's age to complete this topic MENINGOCOCCAL VACCINE Aged Out No marguerite jesse eligible based on patient's age to complete this topic Care Teams Car Unloader Helper Relationship Specialty Start Date End Date Unknown, Provider PCP - General 02/19/20
--- OUTSIDE RECORDS SUMMARY | 2024-06-22 15:07 | XMS_ITS | Patient Health Summary ---
Author Organization [facility] Address [address] [place] [address] Care Team Providers Care Grip Boss Name Role Phone Unknown, Provider Primary Care Provider Unavaila ble Note from [facility],non-owned Affiliates and Associated Physician Practices is amultiple site organization consisting of ambulatory clinics and hospital sitesin [place], [place], [place] and [place]. This disclosure is being madepursuant to the Care Everywhere program and may not contain all information available regarding this patient. Last updated 18.[facility] Allergies * Menthol(Unknown) * Penicillin G Sodium(Unknown) Medications * Be aware that medications may not be up to date on this document. Alwaysverify current medications with the patient. * albuterol HFA (PROVENTIL;VENTOLIN;PROAIR) 108 (90 Base) MCG/ACT inhaler (Started 10/20/2018) INHALE 2 PUFFS EVERY 4 HOURS NEEDED FOR SHORTNESS OF BREATH. * ciprofloxacin (CIPRO) 500 MG tablet(Started 06/03/2019) TAKE 1 TABLET BY MOUTH EVERY 12 HOURS FOR 7 DAYS * escitalopram (LEXAPRO) 10 MG tablet(Started 12/20/2019) Take 10 mg by mouth once daily * doxycycline hyclate (VIBRAMYCIN) 100 MG tablet(Started 07/25/2019) TAKE 1 TABLET BY MOUTH TWICE A DAY FOR 10 DAYS * cyclobenzaprine (FLEXERIL) 5 MG tablet(Started 02/18/2020) * clonazePAM (KLONOPIN) 0.5 MG tablet(Started 10/29/2019) Take 0.25-0.5 mg by mouth for sleep * ferrous sulfate 325 (65 FE) MG tablet(Started 01/07/2019) TAKE 1 TABLET BY MOUTH THREE TIMES A DAY TAKE WITH MEALS * TRELEGY ELLIPTA 100-62.5-25 MCG/INH(Started 01/20/2020) Inhale 1 puff by mouth once daily * albuterol-ipratropium (DUO-NEB) 0.5-2.5 (3) MG/3ML nebulizer solution(Started 01/01/2019) INHALE 3 ML VIA NEBULIZATION ROUTE FOUR TIMES DAILY * levocetirizine (XYZAL) 5 MG tablet(Started 01/09/2020) * VIVLODEX 10 MG CAPS(Started 01/31/2020) * montelukast (SINGULAIR) 10 MG tablet(Started 01/09/2020) * omeprazole (PRILOSEC) 40 MG capsule(Started 02/07/2020) TAKE 1 CAPSULE BY MOUTH TWICE A DAY * prochlorperazine (COMPAZINE) 10 MG tablet(Started 02/07/2020) Take 10 mg by mouth every 8 hours as needed * sulfaSALAzine EC (AZULFIDINE ENTAB) 500 MG tablet(Started 01/28/2020) Take 1,000 mg by mouth 2 times daily * Roflumilast (DALIRESP) 250 MCG tablet(Started 01/26/2019) TAKE 1 TABLET BY MOUTH DAILY FOR 30 DAYS * meloxicam (MOBIC) 7.5 MG tablet(Started 02/20/2020) Take 1 tablet by mouth once daily 2 refills by 02/19/2021 * azithromycin (ZITHROMAX) 500 MG tablet(Started 07/30/2020) TAKE 1 TAB BY MOUTH EVERY MONDAY, MONDAY, AND MONDAY Active Problems Problem Noted Date Diagnosed Date [...] Mass Index 25.16 09/24/2020 11:56 AM CDT Procedures * XR LUMBAR SPINE 2 OR 3VW(Performed 09/24/2020) Performed for Back pain, unspecified back location, unspecified back pain laterality, unspecified chronicity * XR LUMBAR SPINE 2 OR 3VW(Performed 02/20/2020) Performed for Back pain, unspecified back location, unspecified back pain laterality, unspecified chronicity Results * XR LUMBAR SPINE 2 OR 3VW (09/24/2020 11:43 AM CDT) Only the most recent of2 resultswithin the time period is included. Anatomical Region Laterality Modality Spine Radiographic Marlen ging 09/24/2020 12:3 2 PM CDT Impressions 09/24/2020 12:34 PM CDT Impression: Unchanged L4-L5 and L5-S1 disc arthroplasty. This report was electronically signed by ROMERO CRANDALL ??on 09/24/2020 12:34 PM . Narrative 09/24/2020 12:34 PM CDT Examination: XR LUMBAR SPINE 2 OR 3VW History: M54.9: Back pain, unspecified back location, unspecified back pain laterality, unspecified chronicity Findings:Comparison to 02/20/2020. There is been no substantial change in disc arthroplasties of L4-L5 and L5-S1. There are cholecystectomy clips. There is mild hyperlordosis of the lumbar spine. Vertebral body heights are normal. There is multilevel lower lumbar facet arthropathy. Procedure Note Romero Crandall MD - 09/24/2020 Examination: XR LUMBAR SPINE 2 OR 3VW History: M54.9: Back pain, unspecified back location, unspecified back pain laterality, unspecified chronicity Findings:Comparison to 02/20/2020. There is been no substantial change in disc arthroplasties of L4-L5 and L5-S1. There are cholecystectomy clips. There is mild hyperlordosis ofthe lumbar spine. Vertebral body heights are normal. There is multilevellower lumbar facet arthropathy. Impression: Unchanged L4-L5 and L5-S1 disc arthroplasty. This report was electronically signed by ROMERO CRANDALL on 09/24/2020 12:34PM . Monster Whiteside MD [facility] Care Teams Grip Boss Relationship Specialty Start Date End Date Unknown, Provider PCP - General 02/19/20
[2024-06-22 15:18] VITALS: BP 109/72; PULSE 71; RESP 18; TEMP 36.4; O2SAT 97
--- NOTE | 2024-06-22 15:49 | ED_ITS ---
HPI - General Adult General Chief complaint: Extremity Injury, Lower Stated complaint: LT Ankle Pain Time Seen by Provider: 06/22/24 15:49 Source: patient Mode of arrival: ambulatory Limitations: no limitations History of Present Illness HPI narrative: 68-year-old female patient presents to the [facility] with complaints of left ankle pain. Patient states that she tripped over a cord and fell a week ago today. Patient states she feels like the pain is getting better but states she was concerned because the bruising and inflammation or getting worse. Patient states she has been elevating but denies putting ice on it denies wrapping it. Patient states she has been taking Tylenol for pain. Patient does arrive in a home wheelchair. Related Data Home Medications ?Medication ?Instructions ?Recorded ?Confirmed ?Last Taken ?Type roflumilast 250 mcg tablet 250 mcg PO DAILY 10/29/19 07/13/22 Unknown History (Daliresp) albuterol sulfate 2.5 mg/3 mL 2.5 mg inhalation Q4-6H PRN 01/27/21 07/13/22 Unknown History (0.083 %) solution for nebulization ferrous sulfate 325 mg (65 mg 325 mg PO DAILY 01/27/21 07/13/22 Unknown History iron) tablet folic acid 800 mcg tablet 0.8 mg PO DAILY 01/27/21 07/13/22 Unknown History mecobalamin (vitamin B12) 1,000 1,000 mcg PO DAILY 01/27/21 07/13/22 Unknown History mcg chewable tablet meloxicam submicronized 10 mg 10 mg PO DAILY 01/27/21 07/13/22 Unknown History capsule sulfasalazine 500 mg tablet 500 mg PO BID 01/27/21 07/13/22 Unknown History Allergies Allergy/AdvReac Type Severity Reaction Status Date / Time codeine Allergy Unknown unknown Verified 06/22/24 15:28 hydrocodone Allergy Unknown unkown Verified 06/22/24 15:28 Penicillins Allergy Unknown unkown Verified 06/22/24 15:28 tramadol Allergy Unknown unkown Verified 06/22/24 15:28 valacyclovir Allergy Unknown unkown Verified 06/22/24 15:28 azithromycin AdvReac Intermediate Diarrhea Verified 06/22/24 15:28 Review of Systems Review of Systems: CONSTITUTIONAL: Denies fever, chills, or sweats. EYES: Denies visual changes, redness, or discharge. ENT: Denies rhinorrhea, congestion, sore throat, or otalgia. CARDIOVASCULAR: Denies chest pain, palpitations, or edema. RESPIRATORY: Denies cough or dyspnea. GASTROINTESTINAL: Denies abdominal pain, nausea, vomiting, or diarrhea. GENITOURINARY: Denies dysuria or hematuria. SKIN: Denies rash or itching. MUSCULOSKELETAL: Denies back pain, joint pain, or myalgia. Positive left ankle pain x1 week NEUROLOGIC: Denies headache, numbness, or weakness. PSYCHIATRIC: Denies anxiety or depression. [facility] Past Medical History Medical History (Updated 06/22/24 @ 16:47 by STEW Villarreal) Anxiety DDD (degenerative disc disease) Ankylosing spondylitis Polyarthralgia Allergic rhinitis Paresthesias Chronic low back pain Depression GERD (gastroesophageal reflux disease) HLD (hyperlipidemia) PTSD (post-traumatic stress disorder) Personal history of pulmonary embolism H/O deep venous thrombosis COPD (chronic obstructive pulmonary disease) Family History Family History Father Family history of coronary artery disease Social History Social History Smoking packs per day: 1 Smoking cigarettes per day: 20.0 Years smoked: 48 Smoking pack-years: 48.00 Smoking status: Former smoker Tobacco type: cigarettes Second hand tobacco smoke exposure: No Smoking end date: 09/19/18 Alcohol intake: never Substance use: never Substance use type: does not use Lack of Food: Never True Current Housing: I Have Housing Concerned About Future Housing: No Difficulty Paying Gas/Electric Bills: No Difficulty Paying for Meds: No Currently Unemployed: No Education: High School Diploma/GED Difficulty w/ Childcare or Family Care: No Living arrangements: with family Occupation/Education: retired Gender identity (if verbalized by the patient): Female Comments At the time of my signature I agree with nursing past medical history, surgical, social, and family history. There is no relevant family history pertinent to the presenting complaint. Exam Narrative: GENERAL: Well-appearing, well-nourished, and in no acute distress. HEAD: Normocephalic, atraumatic. EYES: PERRLA and EOMI. ENT: Nares clear, no rhinorrhea or epistaxis. Mucous membranes moist. NECK: Supple. No lymphadenopathy CHEST: Clear to auscultation. No respiratory distress. HEART: Regular rate and rhythm. No murmur heard. Normal peripheral pulses. ABDOMEN: Soft, nontender, nondistended, normal active bowel sounds. EXTREMITIES: Patient unable to bear weight and ambulate without pain. No surface trauma, positive ecchymosis, swelling and erythema noted over the left foot and ankle area. No lesions, ulcers or break in skin integrity. The L foot is without obvious asymmetry or deformity when compared to the R foot. No bony step-off, tender to palpation over the lateral malleolus of the left foot. No tenderness over the toes, midfoot or hindfoot or sole. decrease in plan tar/dorsiflexion, inversion/eversion. Distal motor and neurovascular status are intact SKIN: Warm, dry, no rash. NEURO: No focal deficits. Alert and oriented x3. Course Course Level of Care: Express Care Visit Reevaluation(s) Reevaluation #1: Re-evaluated patient notified her that her x-ray is positive for a distal fibula fracture. Discussed with patient that I did call the on-call orthopedic doctor did discuss the findings with him in recommendations for treatment. We are going to do a posterior OCL to the left leg and advise patient to get a walker from [employer] or drug store to help her get around. Discussed with her that the doctor wants her to elevate the foot constantly if she is not eating or going to the bathroom she needs to lay down and prop the leg up on several pillows to help decrease the swelling. Patient states that she is getting pain relief with the Tylenol discussed with her she can continue taking the Tylenol to help with pain. Discussed with her that she will need to call Dr. Obando office on Monday and make an appointment for follow-up with him. She is aware the plan of care at this time denies any other questions or concerns. Date: 06/22/24 Time: 16:42 Consultations Consultation #1: Called spoke with Dr. Youssef about patient's x-ray and significant amount of swelling. Discussed with him if he would like us to put an in an OCL or just wrap the ankle due to the amount of swelling. He is suggested to put a posterior OCL to the area to help support the fracture and to use roll gauze instead of the Tutu wrap to help prevent any pressure wounds. We also discussed about teaching the patient to elevate the foot and to call his office on Monday morning for a follow-up. Date: 06/22/24 Time: 16:30 Vital Signs Vital signs: Vital Signs Temperature 36.4 C L 06/22/24 15:18 Pulse Rate 71 06/22/24 15:18 Respiratory Rate 18 06/22/24 15:18 Blood Pressure 109/72 06/22/24 15:18 Pulse Oximetry 97 06/22/24 15:18 Oxygen Delivery Room Air 06/22/24 15:18 Temperature 36.4 C L 06/22/24 15:18 Pulse Rate 06/22/24 15:18 Respiratory Rate 18 06/22/24 15:18 Blood Pressure 109/72 06/22/24 15:18 Pulse Oximetry 06/22/24 15:18 Oxygen Delivery Room Air 06/22/24 15:18 vital signs reviewed. Medical Decision Making MDM Narrative Medical decision making narrative: Plan of care for patient is to obtain an x-ray to assess for any acute fractures. I will reassesent once this has resulted. Differential Diagnosis Differential Diagnosis: Differential diagnosis: Foot fracture, crush injury, compartment syndrome, contusion, sprain, tendinitis,lisfranc sprain or fracture, avulsion fracture, grown toenail, diabetic ulcer. Vital Signs Vital Signs: Vital Signs Temperature 36.4 C L 06/22/24 15:18 Pulse Rate 06/22/24 15:18 Respiratory Rate 18 06/22/24 15:18 Blood Pressure 109/72 06/22/24 15:18 Pulse Oximetry 06/22/24 15:18 Oxygen Delivery Room Air 06/22/24 15:18 Temperature 36.4 C L 06/22/24 15:18 Pulse Rate 06/22/24 15:18 Respiratory Rate 18 06/22/24 15:18 Blood Pressure 109/72 06/22/24 15:18 Pulse Oximetry 06/22/24 15:18 Oxygen Delivery Room Air 06/22/24 15:18 Imaging Data Radiologist's impression: [address] [address] XRay Report Signed Patient: Anat Mercado : 1955 MR#: [id number] Age: 68 Acct:[id number] Loc: EX[facility] ADM Date: 06/22/24Attending Dr: Ordering Physician: Elaina Edouard APRN Date of Service: 06/22/24 Procedure(s): XR ankle LT min 3V; XR foot LT min 3V Accession Number(s): [id number]; [id number] cc: Nayan Ellis DO; Elaina Edouard SHOP ROUTER~ EXAM: XR ankle LT min 3V, XR foot LT min 3V DATE: 06/22/2024 16:09 HISTORY: fall x 1 week . COMPARISON: None available. FINDINGS: Normal mineralization. Oblique fracture of the distal left fibula, extending to the joint line (Shaw B), with 2 mm lateral displacement. No lytic or blastic lesion. Mild degenerative change at the first MTP joint and multiple midfoot joints. Achilles and plantar enthesopathy. No erosion or periosteal change. Soft tissues within normal limits. IMPRESSION: Minimally displaced oblique distal left fibular fracture. Reviewed, dictated and finalized at location K. TRIC MOTOR ANALYST Launch?[facility] [address] [address] XRay Report Signed Patient: Anat Mercado : 1955 MR#: [id number] Age: 68 Acct:[id number] Loc: EXPTR ADM Date: 06/22/24Attending Dr: Ordering Physician: Elaina Edouard APRN Date of Service: 06/22/24 Procedure(s): XR ankle LT min 3V; XR foot LT min 3V Accession Number(s): [id number]; [id number] cc: Nayan Ellis DO; Silke, Elaina D. SHOP ROUTER~ EXAM: XR ankle LT min 3V, XR foot LT min 3V DATE: 06/22/2024 16:09 HISTORY: fall x 1 week . COMPARISON: None available. FINDINGS: Normal mineralization. Oblique fracture of the distal left fibula, extending to the joint line (Shaw B), with 2 mm lateral displacement. No lytic or blastic lesion. Mild degenerative change at the first MTP joint and multiple midfoot joints. Achilles and plantar enthesopathy. No erosion or periosteal change. Soft tissues within normal limits. IMPRESSION: Minimally displaced oblique distal left fibular fracture. Reviewed, dictated and finalized at location K. TRIC MOTOR ANALYST Critical Care Time Critical Care Time Critical Care Time: No Discharge Plan Discharge Clinical Impression: Closed fracture of distal end of left fibula Patient Disposition: Home, Self-Care Condition: Stable Instructions: Antibiotic Form, Ankle Fracture (ED) Additional Instructions: Avoid weight bearing until follow-up with orthopedic surgeon Ice to the area 20-30 minutes 4-6 times a day Elevate above heart Elastic wrap or orthopedic splint as directed until follow-up with orthopedic surgeon obtain a walker to use that to help get to around Tylenol for lesser pain Ibuprofen regularly for the next 2-3 days for the inflammation call orthopedics office on Monday for a scheduled appointment Patient Language: Albanian Prescriptions: No Action Daliresp 250 mcg tablet 250 mcg PO DAILY ibuprofen 800 mg tablet 800 mg PO TID PRN (Reason: pain) Qty: 90 3RF acetaminophen [Tylenol Arthritis Pain] 650 mg tablet extended release 650 mg PO Q12H PRN (Reason: fever or pain) Qty: 14 0RF cyclobenzaprine 10 mg tablet 10 mg PO TID PRN (Reason: muscle spasm) Qty: 90 0RF sulfasalazine 500 mg tablet 500 mg PO BID Rx Instructions: give with food (meal/snack) ferrous sulfate 325 mg (65 mg iron) tablet 325 mg PO DAILY folic acid 800 mcg tablet 0.8 mg PO DAILY mecobalamin (vitamin B12) 1,000 mcg tablet,chewable 1,000 mcg PO DAILY meloxicam submicronized 10 mg capsule 10 mg PO DAILY albuterol sulfate 2.5 mg /3 mL (0.083 %) solution for nebulization 2.5 mg inhalation Q4-6H PRN triamcinolone acetonide 0.1 % cream 1 applic topical BID Qty: 30 0RF prochlorperazine maleate 10 mg tablet See Rx Instructions .ROUTE .COMPLEX Qty: 30 0RF Dose Instruction: TAKE 1 TABLET BY MOUTH EVERY 12 HOURS NEEDED FOR NAUSEA AND VOMITTING Rx Instructions: TAKE 1 TABLET BY MOUTH EVERY 12 HOURS NEEDED FOR NAUSEA AND VOMITTING rosuvastatin 5 mg tablet 5 mg PO DAILY Qty: 90 0RF montelukast 10 mg tablet See Rx Instructions .ROUTE .COMPLEX Qty: 90 1RF Dose Instruction: TAKE 1 TABLET BY MOUTH EVERY DAY Rx Instructions: TAKE 1 TABLET BY MOUTH EVERY DAY ibandronate 150 mg tablet 150 mg PO MONTHLY Qty: 1 6RF levocetirizine 5 mg tablet See Rx Instructions .ROUTE .COMPLEX Qty: 90 1RF Dose Instruction: TAKE 1 TABLET BY MOUTH EVERY DAY Rx Instructions: TAKE 1 TABLET BY MOUTH EVERY DAY escitalopram oxalate 20 mg tablet See Rx Instructions .ROUTE .COMPLEX Qty: 90 0RF Dose Instruction: TAKE 1 TABLET BY MOUTH EVERY DAY Rx Instructions: TAKE 1 TABLET BY MOUTH EVERY DAY albuterol sulfate 90 mcg/actuation HFA aerosol inhaler 2 inh INHALATION Q4-6H Qty: 8.5 4RF Trelegy Ellipta 100-62.5-25 mcg blister with device See Rx Instructions .ROUTE .COMPLEX Qty: 60 6RF Dose Instruction: USE 1 INHALATION DAILY Rx Instructions: USE 1 INHALATION DAILY omeprazole 40 mg capsule,delayed release(DR/EC) 40 mg PO BID Qty: 180 2RF fluticasone propionate 50 mcg/actuation spray,suspension See Rx Instructions .ROUTE .COMPLEX Qty: 16 6RF Dose Instruction: SPRAY 2 SPRAYS INTO EACH NOSTRIL ONCE DAILY NEEDED FOR NASAL CONGESTION Rx Instructions: SPRAY 2 SPRAYS INTO EACH NOSTRIL ONCE DAILY NEEDED FOR NASAL CONGESTION Follow-up/Referrals: Nayan Ellis DO [Primary Care Provider] - Colby Ashley MD [Physician] - Stand Alone Forms: Work/School Release IP Time of Disposition: 16:46
== END 2024-06-22 17:15 | disposition home or self-care (01) ==
PROVIDERS: Emergency Provider Nurse Practitioner Family; PCP Internal Medicine
DX: S82.832A Other fracture of upper and lower end of left fibula, initial encounter for closed fracture (principal); W18.09XA Striking against other object with subsequent fall, initial encounter; J44.9 Chronic obstructive pulmonary disease, unspecified; K21.9 Gastro-esophageal reflux disease without esophagitis; E78.5 Hyperlipidemia, unspecified; Z86.711 Personal history of pulmonary embolism; Z86.718 Personal history of other venous thrombosis and embolism; Z87.891 Personal history of nicotine dependence
CPT/HCPCS: 29505; 73610; 73630; 99214; G0463